=== PATIENT | female | born 1940 | race Caucasian/White ===

== ENCOUNTER 2019-08-23 10:28 | Observation (INO) | payer MEDICARE ==
[2019-08-23] MEDS ORDERED: NS 0.9% 1000 ML** 1,000 ML IV ONE ×2 (10:47→11:28)
--- NOTE | 2019-08-23 10:58 | ED ---
Influenza-Like Illness - HPI Summary HPI Summary: 78 year old F presenting to [facility] accompanied by EMS complains of flu-like symptoms since 4 days ago. Patient reports weakness, cough, nausea, and fatigue per EMS. Pt denies hematuria and dysuria. Pt is not on O2 at home and lives. SocHx of smoking. The patient rates the pain 3/10 in severity. Symptoms aggravated by nothing. Symptoms alleviated by nothing. - History of Current Complaint Chief Complaint: EDFluSymptoms Time Seen by Provider: 08/23/19 10:34 Hx Obtained From: Patient, EMS Onset/Duration: Lasting Days, Still Present Severity: Mild Associated Signs & Symptoms: Cough - Allergy/Home Medications Allergies/Adverse Reactions: Allergies Allergy/AdvReac Type Severity Reaction Status Date / Time MS Loratadine [From Claritin] Allergy Severe See Comment Verified 08/23/19 10:43 MS Atenolol [From Tenormin] Allergy Intermediate Hives Verified 08/23/19 10:43 MS Captopril [From Capoten] Allergy Intermediate Hives Verified 08/23/19 10:43 MS Codeine [Codeine] Allergy Intermediate Hives Verified 02/18/17 09:23 PMH/Surg Hx/FS Hx/Imm Hx Cardiovascular History: Reports: Hx Angina, Hx Hypertension, Other Cardiovascular Problems/Disorders - DOUBLE BYPASS Respiratory History: Reports: Hx Asthma - Cancer History Cancer Type, Location and Year: RENAL CA - Surgical History Surgery Procedure, Year, and Place: HYSTERECTOMY 1969; BYPASS 2004; LEFT NEPHRECTOMY Infectious Disease History: No Infectious Disease History: Denies: Traveled Outside the [place] in Last 30 Days - Family History Known Family History: Positive: Other - Brother has carcinoma - Social History Alcohol Use: None Substance Use Type: Reports: None Hx Tobacco Use: Yes Smoking Status (MU): Former Smoker - quit last week Review of Systems Positive: Fatigue Positive: Cough Positive: Nausea Negative: dysuria, hematuria Positive: Weakness All Other Systems Reviewed And Are Negative: Yes Physical Exam - Summary Physical Exam Summary: Constitutional: appears fatigued Skin: Warm, Dry HENT: Dry mucous membranes Eyes: Conjunctiva normal Neck: Musculoskeletal ROM normal neck. (-) JVD, (-) Stridor, (-) Tracheal deviation Cardio: Rhythm regular, rate normal, Heart sounds normal; Intact distal pulses; The pedal pulses are 2+ and symmetric. Radial pulses are 2+ and symmetric. (-) Murmur Pulmonary/Chest wall: Effort normal. (-) Respiratory distress, (-) Wheezes, (-) Rales Abd: Soft, (-) tenderness, (-) Distension, (-) Guarding, (-) Rebound Musculoskeletal: (-) Edema Lymph: (-) Cervical adenopathy Neuro: Alert, Oriented x3 Psych: Mood and affect Normal Lungs: faint wheezing/crackles Triage Information Reviewed: Yes Vital Signs On Initial Exam: Initial Vitals Temp Pulse Resp BP Pulse Ox 97.2 F 110 16 67/52 93 08/23/19 10:40 08/23/19 10:40 08/23/19 10:40 08/23/19 10:40 08/23/19 10:40 Vital Signs Reviewed: Yes Procedures - Sedation Patient Received Moderate/Deep Sedation with Procedure: No Diagnostics - Vital Signs Vital Signs Temp Pulse Resp BP Pulse Ox 08/23/19 10:40 97.2 F 110 16 67/52 93 - Laboratory Result Diagrams: 08/23/19 10:56 08/23/19 10:56 Lab Statement: Any lab studies that have been ordered have been reviewed, and results considered in the medical decision making process. - Radiology CXR Radiology Interpretation Completed By: Radiologist Summary of Radiographic Findings: IMPRESSION: 1. RIGHT GREATER THAN LEFT BIBASILAR AIRSPACE OPACIFICATION (ATELECTASIS VERSUS. INFILTRATE. 2. KNOWN PULMONARY NODULES BETTER CHARACTERIZED BY COMPARISON CT IMAGING. 3. POSTOPERATIVE CHANGES. has reviewed this report. - EKG 1051 Cardiac Rate: Tachycardia EKG Rhythm: Sinus Tachycardia Summary of EKG Findings: EKG at 1051 reveals sinus tachycardia with a rate of [address] depression. Lateral leads. has reviewed and interpreted this report. Flu Symptom Course/Dx - Course Course Of Treatment: 78 year old F presenting to [facility] accompanied by EMS complains of flu-like symptoms since 4 days ago. Patient reports weakness, cough , nausea, and fatigue per EMS. Physical exam findings: Gen: appears fatigued. HENT: dry mucous membranes. Lungs: faint wheezing/crackles. Bloodwork results with no significant abnormalities except for H WBC, H RDW, H Plt Count, H Absolute Neuts, L Absolute Lymphs, L Carbon Dioxide, H Anion Gap, H BUN, H Creatinine, H BUN/Creatinine Ratio, H Troponin I (0.05), L Albumin, L Albumin/ [place] Ratio. Urinalysis results with no significant abnormalities except for Trace A Urine Ketones. An EKG shows EKG at 1051 reveals sinus tachycardia with a rate of [address] depression. Lateral leads. CXR shows 1. RIGHT GREATER THAN LEFT BIBASILAR AIRSPACE OPACIFICATION (ATELECTASIS VERSUS INFILTRATE. 2. KNOWN PULMONARY NODULES BETTER CHARACTERIZED BY COMPARISON CT IMAGING. 3. POSTOPERATIVE CHANGES, per radiologist. In the ED course, the patient was given Ns, Ceftriaxone 1 gm Ns 0.9% 50 ml, Azithromycin 500 mg/250 ml NS. We discussed patient care with at 1125 who recommended admission. The patient will be admitted to the hospitalist. The patient is agreeable with this plan. - Diagnoses Provider Diagnoses: Dehydration, COPD (chronic obstructive pulmonary disease), Renal insufficiency , Elevated troponin - Physician Notifications Discussed Care Of Patient With: Jarrod Daniels Time Discussed With Above Provider: 11:25 Instructed by Provider To: Admit As Inpatient Discharge ED - Sign-Out/Discharge Documenting (check all that apply): Patient Departure - admit - Discharge Plan Condition: Stable Disposition: ADMITTED TO [facility] Referrals: Hammad Robertson DO [Primary Care Provider] - - Attestation Statements Document Initiated by Scribe: Yes Documenting Scribe: Ankur Barber Provider For Whom Rochelle is Documenting (Include Credential): Vik Moore DO Scribe Attestation: Ankur Baxter scribed for Vik Moore DO on 08/23/19 at 1150. Status of Scribe Document: Ready
[2019-08-23 11:09] LABS: ABS Eosinophils 0.1 10^3/ul (0-0.6); ABS Lymphocytes 0.7 10^3/ul (1.0-4.8); ABS Monocytes 0.6 10^3/ul (0-0.8); ABS Neutrophils 11.8 10^3/ul (1.5-7.7); Eosinophil % 0.9 %; Hematocrit 39 % (35-47); Hemoglobin 13.1 g/dL (12.0-16.0); Lymphocyte % 5.3 %; Mean Corpuscular HGB Conc 34 g/dL (31-36); Mean Corpuscular Hemoglobin 30 pg (27-31); Mean Corpuscular Volume 90 fL (80-97); Mean Platelet Volume 8.1 fL (7.4-10.4); Nucleated Red Blood Cells % 0.1; Platelet Count 508 10^3/uL (150-450); Red Blood Count 4.33 10^6 /uL (3.70-4.87); Red Cell Distribution Width 16 % (10-15); White Blood Count 13.3 10^3/uL (3.5-10.8)
[2019-08-23 11:12] LABS: Influenza A Molecular Negative (Negative); Influenza B Molecular Negative (Negative)
[2019-08-23 11:23] LABS: Urine Appearance Cloudy; Urine Bilirubin Negative (Negative); Urine Blood Negative (Negative); Urine Color Amber; Urine Glucose Negative (Negative); Urine Ketones Trace (Negative); Urine Nitrite Negative (Negative); Urine Protein Negative (Negative); Urine Specific Gravity 1.016 (1.010-1.030); Urine Urobilinogen Negative (Negative)
[2019-08-23 11:26] LABS: ALT 11 U/L (7-52); AST 17 U/L (13-39); Albumin 3.1 g/dL (3.2-5.2); Albumin/Globulin Ratio 0.8 (1-3); Alkaline Phosphatase 90 U/L (34-104); Anion Gap 18 mmol/L (2-11); BUN/Creatinine Ratio 22.2 (8-20); Blood Urea Nitrogen 57 mg/dL (6-24); CO2 Carbon Dioxide 18 mmol/L (22-32); Calcium 9.3 mg/dL (8.6-10.3); Chloride 101 mmol/L (101-111); EGFR African American 21.8 (>60); Glucose 78 mg/dL (70-100); Potassium 4.3 mmol/L (3.5-5.0); Sodium 137 mmol/L (135-145); Total Protein 7.1 g/dL (6.4-8.9)
[2019-08-23] MEDS ORDERED: cefTRIAXone(*) 1 GM in NS 0.9% 50 ML* 50 ML IVPB ONE (11:28)
[2019-08-23 11:29] LABS: Troponin I 0.05 ng/mL (<0.03)
[2019-08-23] MEDS ORDERED: Azithromycin 500 mg/250 ml NS 500 MG/250 ML BAG IVPB ONE (11:43)
[2019-08-23] MEDS ORDERED: Ondansetron INJ* 2 MG/ML VIAL IV PRN (12:50)
[2019-08-23] MEDS ORDERED: Albuterol/Ipratropium NEB.SOL* Albuterol 2.5 MG/Ipratropium 0.5 MG 3 ML INH PRN (12:50)
[2019-08-23] MEDS ORDERED: Acetaminophen TAB* 325 MG PO PRN (12:50)
[2019-08-23] MEDS ORDERED: Albuterol HFA INHALER* 8 gm MDI INH PRN (13:57)
[2019-08-23 15:05] LABS: Troponin I 0.03 ng/mL (<0.03)
--- NOTE | 2019-08-23 16:06 | HP ---
CC: Dr. Robertson * HISTORY AND PHYSICAL: DATE OF ADMISSION: 08/23/19 PRIMARY CARE PROVIDER: Dr. Robertson. ATTENDING PHYSICIAN: Dr. Daniels * (dictated by Radha Gary NP) CHIEF COMPLAINT: 1. Weakness. 2. Cough. 3. Fatigue. HISTORY OF PRESENT ILLNESS: Ms. Greer is an 78-year-old female with a past medical history significant for hypertension, double bypass, renal CA, who presents to the emergency department today with flu-like symptoms x4 days. The patient is complaining of weakness, cough, nausea, fatigue. The patient reports symptoms started about 4 days ago and she "felt lousy." She tells us right now she has been experiencing dry mouth, cough with sputum, chest pain with cough, nausea, fatigue, weakness. She denies fevers, edema, hemoptysis, vomiting, diarrhea, abdominal pain. She does report occasional shortness of breath. While in the emergency room the patient had labs, which revealed elevated WBC of 13.3, elevated creatinine at 2.57, elevated lactic at 2.4; given these finding in addition to a chest x-ray that revealed right greater than left bibasilar airspace opacification atelectasis versus infiltrate. Hospitalists were asked to evaluated for admission. PAST MEDICAL HISTORY: 1. Hypertension. 2. Double bypass/CAD. 3. Renal CA. PAST SURGICAL HISTORY: 1. Hysterectomy. 2. Bypass 2004. 3. Left nephrectomy 2013. ALLERGIES: LORATADINE, ATENOLOL, CIPRO, CODEINE. FAMILY HISTORY: She reports her daughters both have diabetes. She denies history of CAD or cancer. SOCIAL HISTORY: The patient quit smoking 1 week ago. The patient had 65 year a pack per day smoking history. The patient does not drink. The patient does not do drugs. The patient is retired. The patient lives with her son. The patient is independent in her ADLs. The patient declines to list someone as a healthcare proxy in the event that she is unable to make decisions for herself. REVIEW OF SYSTEMS: A 14 point review of systems was performed and all pertinent positive and negative findings are in the HPI. All others are negative. PHYSICAL EXAMINATION GENERAL: Ms. Greer is a underweight elderly woman, who is lying in bed. Appears to be in no acute distress. Appears stated age. VITAL SIGNS: Temp 97.2, HR 109, RR 26, O2 saturation 96% on room air, BP 108/ 56. HEENT: PERRLA. EOMs intact. Sclerae are without icterus. Oral mucosa is moist without lesion. Posterior pharynx is clear. NECK: No lymphadenopathy. No pain to palpation. RESPIRATORY: Symmetrical chest expansion. No accessory muscle use. Rhonchi heard upper anteriorly and sporadically throughout posteriorly. No wheezes or rubs. CV: Regular rate and rhythm. S1, S2 present. No murmurs, rubs or gallops. ABDOMEN: Soft, nontender. Bowel sounds normoactive. EXTREMITIES: Skin is warm and smooth bilaterally. No edema. No clubbing, cyanosis. Pedal pulses 2+ bilaterally. MUSCULOSKELETAL: No pain or deformities. NEURO: Awake, alert and oriented x4. Motor strength is 5/5 in the upper and lower extremities. SKIN: Grossly intact without lesion. DIAGNOSTIC STUDIES/LAB DATA: WBC 13.3, hemoglobin 13.1, hematocrit 39, platelets 508. Sodium 137, potassium 4.3, chloride 101, carbon dioxide 18, BUN 57, creatinine 2.57, lactic 2.4. Troponin 0.05. Urine positive for trace ketones otherwise unremarkable. Flu A and B negative. Chest x-ray: Right greater than left bibasilar airspace opacification ( atelectasis versus infiltrate) known pulmonary nodules that are characterized by comparison CT imaging. Postoperative changes. EKG: Sinus tachycardia, ASSESSMENT AND PLAN: Ms. Greer is a 78-year-old female with past medical history significant for hypertension, coronary artery disease, renal cancer; who presented to the emergency department today with flu-like symptoms. The patient will be admitted to OBV: 1. Weakness/fatigue: The patient has been experiencing flu-like symptoms including weakness fatigue x4 days. The patient has a slightly elevated white count. The patient has slightly elevated lactic. She is flu negative. Chest x -ray suspicious for infiltrate. We will continue antibiotics as started in the emergency room. We will repeat labs. We will monitor vital signs. 2. Cough/shortness of breath: The patient has occasional productive cough and also complaining of occasional shortness of breath. Given the chest x-ray we will continue antibiotics as mentioned above. We will order DuoNeb as needed. 3. Systemic inflammatory response syndrome. The patient meets Systemic inflammatory response syndrome criteria with tachycardia, tachypnea, and elevated white count. She received fluid bolus in the emergency department. I will hold on any additional fluids at this time as we do not know the patient's ejection fraction. We will continue antibiotics. The patient was pancultured. Lactic acid will be repeated in 3 hours. 4. Lactic acidosis: The patient's lactic is 2.4. We will repeat in 3 hours. I suspect this is secondary to her illness. 5. Leukocytosis: We will continue antibiotics. Repeat labs in the morning. 6. Acute on chronic kidney disease: As mentioned above the patient's creatinine was elevated on admission at 2.57. This is above her baseline of 1.77 on November 2018. I suspect this is secondary to her illness process and also possibly dehydration. She reports she has been unable to drink much or eat much given her weakness. We will repeat her creatinine in the morning. We will refrain from any nephrotoxic medication. 7. Elevated troponin: Troponin was drawn in the ED and was found to be 0.05. The patient is not complaining of any acute coronary syndrome symptoms. The patient does report some chest pain with cough but only with cough. The patient 's EKG was unremarkable. Given that it is mildly elevated at 0.05, we will repeat this. We suspect that it is demand ischemia given the patient's respiratory illness. 8. Hypertension: The patient carries a history of hypertension, although she was noted to be hypotensive in the emergency department. Given her meeting systemic inflammatory response syndrome criteria, I will hold her blood pressure medications at this time and we will hold her lisinopril at this time. I will continue her metoprolol to avoid rebound tachycardia. 9. Double bypass/coronary artery disease: I will continue the patient's aspirin and statin. 10. Renal cancer: The patient had nephrectomy in 2013. Once again her creatinine is mildly elevated we will monitor this. We will also provide with hydration. We will avoid nephrotoxic medications. 11. FEN: The patient will be placed on a regular diet. 12. Code status: The patient is a full code. 13. DVT prophylaxis: Based on DVT Risk Assessment, the patient is high risk. I will order heparin. TIME SPENT: Approximately 65 minutes was spent on this admission, greater than half the time was spent with the patient obtaining my history, performing physical exam and reviewing my plan of care. The case has been reviewed with my attending Dr. Daniels, who is in agreement with my plan of care. RADHA GARY, ASSOCIATE CREATIVE DIRECTOR [id number]/[facility] [place] #: [id number] E.J. NOBLE HOSPITALVarinder
[2019-08-23] MEDS: Heparin VIAL(*) 5000 UNITS/ML VIAL (FIVE THOUSAND) SUBCUT SCH ×2 (16:07→21:10)
[2019-08-23] MEDS: Mometasone/Formoter 200/5 MDI INH SCH (20:25)
[2019-08-23] MEDS: Metoprolol Tartrate TAB* 100 MG TAB PO SCH (21:09)
[2019-08-24] MEDS: Heparin VIAL(*) 5000 UNITS/ML VIAL (FIVE THOUSAND) SUBCUT SCH ×2 (06:03→13:22)
[2019-08-24 07:10] LABS: ABS Eosinophils 0.4 10^3/ul (0-0.6); ABS Lymphocytes 0.9 10^3/ul (1.0-4.8); ABS Monocytes 0.5 10^3/ul (0-0.8); ABS Neutrophils 7.6 10^3/ul (1.5-7.7); Eosinophil % 4.2 %; Hematocrit 34 % (35-47); Hemoglobin 11.4 g/dL (12.0-16.0); Lymphocyte % 9.9 %; Mean Corpuscular HGB Conc 34 g/dL (31-36); Mean Corpuscular Hemoglobin 30 pg (27-31); Mean Corpuscular Volume 90 fL (80-97); Mean Platelet Volume 8.3 fL (7.4-10.4); Nucleated Red Blood Cells % 0.1; Platelet Count 361 10^3/uL (150-450); Red Blood Count 3.78 10^6 /uL (3.70-4.87); Red Cell Distribution Width 15 % (10-15); White Blood Count 9.4 10^3/uL (3.5-10.8)
[2019-08-24 07:28] LABS: Albumin 2.6 g/dL (3.2-5.2); Albumin/Globulin Ratio 0.8 (1-3); BUN/Creatinine Ratio 25.8 (8-20); EGFR African American 27.1 (>60); EGFR Non-African American 22.4 (>60); Globulin 3.1 g/dL (2-4); Potassium 3.7 mmol/L (3.5-5.0); Total Bilirubin 0.5 mg/dL (0.2-1.0); Total Protein 5.7 g/dL (6.4-8.9)
[2019-08-24] MEDS: Mometasone/Formoter 200/5 MDI INH SCH (07:37)
[2019-08-24] MEDS: Metoprolol Tartrate TAB* 100 MG TAB PO SCH (08:18)
[2019-08-24] MEDS ORDERED: Atorvastatin* 20 MG TAB PO SCH (09:00)
[2019-08-24] MEDS ORDERED: SPIRIVA Respimat* (tiotropium) 2.5 mcg/inh Inhaler INH SCH (09:00)
[2019-08-24] MEDS ORDERED: Aspirin EC TAB* 81 MG TAB.EC PO SCH (09:00)
[2019-08-24] MEDS ORDERED: cefTRIAXone(*) 1 GM in NS 0.9% 50 ML* 50 ML IVPB SCH (12:00)
[2019-08-24 12:27] VITALS: BP 119/38
[2019-08-24] MEDS ORDERED: Azithromycin IV(*) 250 MG in NS 0.9% 250 ML* 250 ML IVPB SCH (13:00)
--- NOTE | 2019-08-25 00:27 | DS ---
CC: Dr. Hammad Robertson * DISCHARGE SUMMARY: DATE OF ADMISSION: 08/23/19 DATE OF DISCHARGE: 08/24/19 PRIMARY CARE PROVIDER: Dr. Hammad Robertson. MY ATTENDING WHILE IN THE HOSPITAL: Dr. Ciarra Childers.* (DICTATED BY KHOA IRIZARRY) PRIMARY DISCHARGE DIAGNOSES: 1. Community-acquired pneumonia. 2. Acute kidney injury. 3. Sepsis. SECONDARY DISCHARGE DIAGNOSES: 1. Hypertension. 2. Coronary artery disease, status post double bypass. 3. Renal cancer, status post nephrectomy. STUDIES DONE WHILE IN THE HOSPITAL: Chest x-ray from 08/23/19 read as right greater than left bibasilar airspace opacification, atelectasis versus infiltrate. No pulmonary nodules that are characterized by comparison CT imaging , postoperative changes. MEDICATIONS AT DISCHARGE: 1. Advair Diskus 500/50 one puff inhalation b.i.d. 2. Albuterol inhaler 2 puffs inhalation q.4 hours as needed. 3. Pravastatin 80 mg p.o. daily. 4. Metoprolol tartrate 100 mg p.o. b.i.d. 5. Incruse Ellipta 62.5 mcg inhalation daily. 6. Vitamin D 400 mg p.o. b.i.d. 7. Calcium carbonate 500 mg p.o. b.i.d. 8. Aspirin 81 mg p.o. daily. 9. [place]-3 fatty acids 1 cap p.o. b.i.d. 10. Tylenol 650 mg p.o. q.4 hours as needed. 11. Azithromycin 250 mg p.o. daily x3. 12. Cefuroxime 500 mg p.o. b.i.d. x11 doses, started in the evening of . New medications at discharge: 1. Tylenol. 2. Azithromycin. 3. Cefuroxime. Medications discontinued at discharge: 1. Lisinopril 40 mg p.o. daily. HOSPITAL COURSE: This is a brief summary of the patient's presentation. For more details, please see the history and physical from Radha Montero NP, on 08/23/19. In brief, the patient is a 78-year-old female with a past medical history significant for the above, who presented to the emergency department with weakness and flu-like symptoms x4 days including dry mouth, cough, weakness , and shortness of breath. In the emergency department, the patient was found to have acute kidney injury, elevated lactic acid, and slightly elevated troponin. The patient was given fluids and antibiotics and her subjective symptoms improved. She felt back to her baseline. Her creatinine declined from 2.57 and 2.13, her most recent baseline was 1.77. The patient was able to ambulate 100 feet with being slightly unsteady on her feet, though she states it is not abnormal for her. The patient's breathing felt back to normal. The patient had no further subjective symptoms. The patient was not hypoxic, did not have low blood pressure. The patient has had no elevated temperature. The patient's tachycardia resolved. The patient was stable and amenable for discharge to home on 08/24/19. PHYSICAL EXAMINATION ON THE DAY OF DISCHARGE: General: The patient is a 78- year- old female, who appears stated age and sitting comfortably in the bed, in no acute distress. Vital Signs: Temperature 98.0, pulse rate 64, respiratory rate 18, oxygen saturation 95% on room air, blood pressure 119/58. HEENT: Head : Normocephalic, atraumatic. Sclerae anicteric. No conjunctival injection. Nasal mucosa moist. Oral mucosa moist. No pharyngeal erythema, discharge, or exudate. Neck: Supple, nontender. No lymphadenopathy. No carotid bruit auscultated. No JVD. Cardiac: Regular rate and rhythm. No clicks, murmurs, gallops, or rubs. Pulses 2+ in bilateral dorsalis pedis, posterior tibialis, and radial areas. Respiratory: Clear to auscultation bilaterally. No wheezes, rales, or rhonchi. Good air exchange bilaterally. Abdomen: Soft, nontender, nondistended. Bowel sounds present and normoactive in all 4 quadrants. No hepatosplenomegaly. No abdominal bruits auscultated. No hepatojugular reflux. Genitourinary: No suprapubic or CVA tenderness. Skin: Clean, dry, and intact. No rash. Neuro: Cranial nerves II through XII intact. No focal deficits. Alert and oriented x3. Psychiatric: Pleasant and cooperative. DISCHARGE PLAN BY PROBLEMS: 1. Community-acquired pneumonia. The patient has imaging findings and symptoms consistent with community-acquired pneumonia and is improving on antibiotics, this is likely because of the patient's acute kidney injury and weakness. The patient has been instructed to decrease her activity level for several days. Continue to work with physical therapy as tolerated and drink lots of fluids. The patient will be continued on for total of 7 days of cephalosporin therapy and 5 days of azithromycin. The patient's blood pressure initially low while in the hospital and is not normal on the patient's metoprolol, however, the patient's lisinopril has been held. The patient will have repeat blood pressure check with her primary care provider within 1 week and lisinopril should be resumed if indicated. 2. Hypertension. Management as above. 3. Chronic obstructive pulmonary disease. Continue the patient's chronic inhalers. The patient is not in any exacerbation at this time. 4. History of coronary artery disease. Continue the patient's Lipitor and aspirin. The patient has an elevated troponin likely from demand ischemia. 5. Acute kidney injury. It is likely related to sepsis and dehydration. The patient has been rehydrated and is on an appropriate antibiotic therapy. The patient will have repeat BMP within 1 week through her primary care provider to ensure resolution. TIME SPENT: Approximately 60 minutes was spent on this discharge of this patient, 30 of which was spent [id number] with the patient obtaining history and physical and discussing the treatment plan. KHOA IRIZARRY [id number]/[facility] #: [id number] MTDD
== END 2019-08-24 15:55 | disposition home or self-care (01) ==
LOC: ED 10:28 → MED 12:50
PROVIDERS: ADMIT Internal Medicine; ATTEND Internal Medicine
DX: A41.9 Sepsis, unspecified organism (principal); J18.9 Pneumonia, unspecified organism; I12.9 Hypertensive chronic kidney disease with stage 1 through stage 4 chronic kidney disease, or unspecified chronic kidney disease; N18.9 Chronic kidney disease, unspecified; I25.10 Atherosclerotic heart disease of native coronary artery without angina pectoris; N17.9 Acute kidney failure, unspecified; R53.83 Other fatigue; Z95.1 Presence of aortocoronary bypass graft; Z85.53 Personal history of malignant neoplasm of renal pelvis; Z90.5 Acquired absence of kidney; Z79.82 Long term (current) use of aspirin; Z79.899 Other long term (current) drug therapy; Z87.891 Personal history of nicotine dependence; Z88.5 Allergy status to narcotic agent; Z88.8 Allergy status to other drugs, medicaments and biological substances
CPT/HCPCS: 36415; 71045; 80053; 81003; 83605; 84484; 85025; 87040; 93005; 94640; 96365; 96366; 96367; 96372; 96375; 99285; A9270-GY; G0378; J0456; J0696; J1644; J3535

== ENCOUNTER 2023-02-03 16:08 | Inpatient (IN) ==
[2023-02-03 16:41] LABS: ABS Eosinophils 0.2 10^3/uL (0.0-0.5); ABS Lymphocytes 0.8 10^3/uL (1.0-4.8); ABS Monocytes 0.8 10^3/uL (0.0-0.9); ABS Neutrophils 5.2 10^3/uL (1.5-7.6); ABS Nucleated RBC 0.01 10^3/ul; Eosinophil % 3.4 %; Hematocrit 34.4 % (35-45); Hemoglobin 11.4 g/dL (11.5-14.3); Lymphocyte % 10.8 %; Mean Corpuscular Hemoglobin 28.6 pg (27-33); Mean Corpuscular Hgb Conc 33.2 g/dL (31-36); Mean Platelet Volume 7.5 fL (7.5-11.2); Nucleated Red Blood Cells % 0.1 /100 WBC (0.0-0.4); Platelet Count 301 10^3/uL (150-450); Red Cell Distribution Width 15.6 % (12-17)
[2023-02-03 17:05] LABS: Albumin 3.8 g/dL (3.2-5.2); Albumin/Globulin Ratio 1.5 (1-3); Calcium 8.2 mg/dL (8.6-10.3); Creatinine, Serum 1.49 mg/dL (0.51-0.95); Globulin 2.6 g/dL (2-4); Total Bilirubin 0.8 mg/dL (0.2-1.0); Total Protein 6.4 g/dL (6.4-8.9); eGFR CKD-EPI 34.9 (>60)
[2023-02-03 17:13] LABS: Potassium 2.1 mmol/L (3.5-5.0)
[2023-02-03] MEDS ORDERED: Potassium Chlor 20 meq TAB.ER PO ONE ×3 (17:38→18:28)
[2023-02-03] MEDS: KCL 10 MEQ/50 ML IVPREMIX 10 MEQ/50 ML BAG IV SCH ×2 (17:54→19:48)
[2023-02-03 18:17] LABS: Magnesium 1.7 mg/dL (1.9-2.7)
[2023-02-03] MEDS ORDERED: Magnesium Sulfate 2 gm BAG 2 GM/50 ML BAG IVPB ONE (18:28)
[2023-02-03] MEDS ORDERED: Albuterol HFA INHALER 8 gm MDI INH PRN (21:59)
[2023-02-03] MEDS: Enoxaparin 30 MG/0.3 ML SYR SUBCUT SCH (22:49)
[2023-02-04 00:50] LABS: Calcium 7.8 mg/dL (8.6-10.3); Creatinine, Serum 1.43 mg/dL (0.51-0.95); Magnesium 2.4 mg/dL (1.9-2.7); eGFR CKD-EPI 36.6 (>60)
[2023-02-04 01:00] LABS: Potassium 2.2 mmol/L (3.5-5.0)
[2023-02-04] MEDS ORDERED: Calcium Carb (TUMS) 500 mg CHEW TAB PO ONE (01:01)
[2023-02-04] MEDS ORDERED: Potassium Chlor 20 meq TAB.ER PO ONE ×4 (01:09→09:13)
[2023-02-04] MEDS: Mometasone/Formoter 200/5 MDI INH SCH ×3 (01:27→19:39)
[2023-02-04] MEDS: CMCS: Ipratropium HFA INHALER(NF) INH SCH ×5 (01:27→19:39)
[2023-02-04] MEDS: KCL 20 MEQ/100 ML IVPREMIX 20 MEQ/100 ML BAG IV SCH ×5 (01:33→23:26)
[2023-02-04] MEDS ORDERED: KCL 20 MEQ/100 ML IVPREMIX 20 MEQ/100 ML BAG IV SCH (04:00)
[2023-02-04 05:03] LABS: Calcium 8.1 mg/dL (8.6-10.3); Creatinine, Serum 1.43 mg/dL (0.51-0.95); Magnesium 2.4 mg/dL (1.9-2.7); Potassium 2.8 mmol/L (3.5-5.0); eGFR CKD-EPI 36.6 (>60)
[2023-02-04] MEDS ORDERED: Succinylcholine 200 mg VIAL 20 mg/ml 10 ml VIAL (200 mg) ONE (13:41)
[2023-02-04 13:55] LABS: Venous Bicarbonate HCO3 23.7 mmol/L (24-28)
[2023-02-04] MEDS ORDERED: Propofol 10 mg/ml 100 ML BTL 0 MG/0 ML BTL ONE (14:02)
[2023-02-04] MEDS ORDERED: Propofol 10 mg/ml 100 ML BTL 1,000 MG/100 ML BTL ONE (14:04)
[2023-02-04 14:05] LABS: INR 1.13 (0.88-1.18)
[2023-02-04 14:07] LABS: ABS Basophils 0.1 10^3/uL (0.0-0.1); ABS Eosinophils 0.8 10^3/uL (0.0-0.5); ABS Lymphocytes 2.4 10^3/uL (1.0-4.8); ABS Monocytes 1.1 10^3/uL (0.0-0.9); ABS Neutrophils 9.3 10^3/uL (1.5-7.6); ABS Nucleated RBC 0.01 10^3/ul; Eosinophil % 5.6 %; Hemoglobin 12.3 g/dL (11.5-14.3); Lymphocyte % 17.7 %; Mean Corpuscular Hemoglobin 28.2 pg (27-33); Mean Corpuscular Hgb Conc 31.6 g/dL (31-36); Mean Corpuscular Volume 89.3 fL (80-97); Mean Platelet Volume 8.2 fL (7.5-11.2); Nucleated Red Blood Cells % 0.1 /100 WBC (0.0-0.4); Platelet Count 491 10^3/uL (150-450); Red Blood Count 4.37 10^6/uL (3.63-4.92); Red Cell Distribution Width 15.8 % (12-17); White Blood Count 13.6 10^3/uL (3.8-11.8)
[2023-02-04 14:08] LABS: Albumin 3.6 g/dL (3.2-5.2); Albumin/Globulin Ratio 1.3 (1-3); Calcium 8.3 mg/dL (8.6-10.3); Creatinine, Serum 1.35 mg/dL (0.51-0.95); Globulin 2.8 g/dL (2-4); Magnesium 2.4 mg/dL (1.9-2.7); Potassium 4.2 mmol/L (3.5-5.0); Total Bilirubin 0.5 mg/dL (0.2-1.0); Total Protein 6.4 g/dL (6.4-8.9); eGFR CKD-EPI 39.2 (>60)
[2023-02-04] MEDS: Propofol 10 mg/ml 100 ML BTL 1,000 MG/100 ML BTL IV SCH (14:10)
[2023-02-04] MEDS ORDERED: fentaNYL 100 mcg/2 ml 50 MCG/ML VIAL ONE ×2 (14:18→15:47)
[2023-02-04] MEDS ORDERED: NORMOSOL-R pH 7.4 1000 mL BAG 1,000 ML IV SCH (14:30)
[2023-02-04] MEDS ORDERED: Norepinephrine 16MCG/ML BAGD5W 4,000 MCG/250 ML BAG IV ONE (14:32)
[2023-02-04] MEDS ORDERED: Propofol 10 MG/ML 20 ML BTL IV PUSH ONE (14:53)
[2023-02-04] MEDS ORDERED: fentaNYL 100 mcg/2 ml 50 MCG/ML VIAL IV SLOW PU ONE ×2 (15:10→16:01)
[2023-02-04] MEDS ORDERED: fentaNYL INFUSION 50 mcg/mL VL 2,500 MCG/50 ML VIAL IV SCH (15:25)
[2023-02-04 15:30] LABS: Resp Rate 16
[2023-02-04 15:33] LABS: PCO2 Arterial 68 mmHg (35-45); PO2 Arterial 165 mmHg (80-100)
[2023-02-04] MEDS: cefTRIAXone 1 gm/50 mL D5W 1 GM/50 ML BAG IV SCH (17:00)
[2023-02-04] MEDS: Azithromycin 500 mg/250 ml NS 500 MG/250 ML BAG IVPB SCH (17:03)
[2023-02-04 17:20] LABS: Urine Appearance Turbid; Urine Bilirubin Negative (Negative); Urine Blood 1+ (Negative); Urine Color Yellow; Urine Glucose Negative (Negative); Urine Ketones Negative (Negative); Urine Nitrite Negative (Negative); Urine Protein 2+(100 mg/dL) (Negative); Urine Specific Gravity 1.014 (1.002-1.030); Urine Urobilinogen Negative (Negative)
[2023-02-04] MEDS: Aspirin EC 81 mg TAB.EC (enteric coated) PO SCH (17:25)
[2023-02-04 17:39] LABS: Urine Bacteria 3+ (Absent); Urine Red Blood Cell 3+(>10/hpf) (Absent); Urine White Blood Cell 3+(>20/hpf) (Absent)
[2023-02-04] MEDS ORDERED: Norepinephrine 16MCG/ML BAGD5W 4,000 MCG/250 ML BAG IV SCH (18:00)
[2023-02-04] MEDS: Pantoprazole VIAL 40 MG VIAL IV SCH (18:32)
[2023-02-04] MEDS: Chlorhexidine MOUTHWASH 0.12% 15 ML UDC TOPICAL SCH ×2 (18:32→20:55)
[2023-02-04] MEDS: Enoxaparin 30 MG/0.3 ML SYR SUBCUT SCH (20:55)
[2023-02-04 21:23] LABS: Calcium 8.1 mg/dL (8.6-10.3); Creatinine, Serum 1.37 mg/dL (0.51-0.95); Potassium 3.6 mmol/L (3.5-5.0); eGFR CKD-EPI 38.6 (>60)
[2023-02-05] MEDS: KCL 20 MEQ/100 ML IVPREMIX 20 MEQ/100 ML BAG IV SCH ×4 (01:44→10:43)
[2023-02-05] MEDS: Propofol 10 mg/ml 100 ML BTL 1,000 MG/100 ML BTL IV SCH ×2 (01:45→14:10)
[2023-02-05] MEDS: Chlorhexidine MOUTHWASH 0.12% 15 ML UDC TOPICAL SCH ×6 (02:04→21:13)
[2023-02-05 04:19] LABS: ABS Basophils 0.1 10^3/uL (0.0-0.1); ABS Eosinophils 0.3 10^3/uL (0.0-0.5); ABS Lymphocytes 1.2 10^3/uL (1.0-4.8); ABS Monocytes 1.1 10^3/uL (0.0-0.9); ABS Nucleated RBC 0.01 10^3/ul; Eosinophil % 2.9 %; Hematocrit 31.6 % (35-45); Hemoglobin 10.4 g/dL (11.5-14.3); Lymphocyte % 10.1 %; Mean Corpuscular Hemoglobin 28.9 pg (27-33); Mean Corpuscular Volume 87.4 fL (80-97); Mean Platelet Volume 7.5 fL (7.5-11.2); Nucleated Red Blood Cells % 0.1 /100 WBC (0.0-0.4); Platelet Count 312 10^3/uL (150-450); Red Blood Count 3.62 10^6/uL (3.63-4.92); Red Cell Distribution Width 16.1 % (12-17); White Blood Count 11.7 10^3/uL (3.8-11.8)
[2023-02-05 04:34] LABS: Calcium 8.1 mg/dL (8.6-10.3); Creatinine, Serum 1.39 mg/dL (0.51-0.95); Potassium 3.6 mmol/L (3.5-5.0); eGFR CKD-EPI 37.9 (>60)
[2023-02-05] MEDS: Mometasone/Formoter 200/5 MDI INH SCH ×2 (08:15→18:55)
[2023-02-05] MEDS: CMCS: Ipratropium HFA INHALER(NF) INH SCH ×4 (08:15→18:55)
[2023-02-05] MEDS: Aspirin EC 81 mg TAB.EC (enteric coated) PO SCH (08:27)
[2023-02-05 09:33] LABS: Venous Bicarbonate HCO3 27.5 mmol/L (24-28)
[2023-02-05 16:38] LABS: Calcium 8.6 mg/dL (8.6-10.3); Creatinine, Serum 1.3 mg/dL (0.51-0.95); Phosphorus 2.5 mg/dL (2.5-5.0); Potassium 3.8 mmol/L (3.5-5.0); eGFR CKD-EPI 41.1 (>60)
[2023-02-05] MEDS: cefTRIAXone 1 gm/50 mL D5W 1 GM/50 ML BAG IV SCH (16:44)
[2023-02-05] MEDS: Azithromycin 500 mg/250 ml NS 500 MG/250 ML BAG IVPB SCH (17:17)
[2023-02-05] MEDS: Pantoprazole VIAL 40 MG VIAL IV SCH (17:17)
[2023-02-05] MEDS: Enoxaparin 30 MG/0.3 ML SYR SUBCUT SCH (21:13)
[2023-02-06] MEDS: Chlorhexidine MOUTHWASH 0.12% 15 ML UDC TOPICAL SCH ×6 (01:45→21:49)
[2023-02-06] MEDS: Propofol 10 mg/ml 100 ML BTL 1,000 MG/100 ML BTL IV SCH ×2 (02:00→15:56)
[2023-02-06 04:47] LABS: ABS Eosinophils 0.9 10^3/uL (0.0-0.5); ABS Monocytes 0.8 10^3/uL (0.0-0.9); ABS Neutrophils 5.2 10^3/uL (1.5-7.6); Eosinophil % 11.1 %; Hematocrit 29.3 % (35-45); Hemoglobin 9.8 g/dL (11.5-14.3); Lymphocyte % 13.1 %; Mean Corpuscular Hgb Conc 33.5 g/dL (31-36); Mean Corpuscular Volume 86.6 fL (80-97); Mean Platelet Volume 7.8 fL (7.5-11.2); Platelet Count 224 10^3/uL (150-450); Red Blood Count 3.39 10^6/uL (3.63-4.92); Red Cell Distribution Width 15.8 % (12-17)
[2023-02-06 05:05] LABS: Calcium 8.2 mg/dL (8.6-10.3); Creatinine, Serum 1.24 mg/dL (0.51-0.95); Magnesium 1.8 mg/dL (1.9-2.7); Phosphorus 2.8 mg/dL (2.5-5.0); Potassium 3.3 mmol/L (3.5-5.0); eGFR CKD-EPI 43.5 (>60)
[2023-02-06] MEDS ORDERED: Magnesium Sulfate 2 gm BAG 2 GM/50 ML BAG IVPB ONE (06:03)
[2023-02-06] MEDS ORDERED: Magnesium Sulfate IV 1GM/100ML 1 GM/100 ML BAG IV ONE (06:04)
[2023-02-06] MEDS: KCL 20 MEQ/100 ML IVPREMIX 20 MEQ/100 ML BAG IV SCH ×2 (06:19→08:03)
[2023-02-06] MEDS: CMCS: Ipratropium HFA INHALER(NF) INH SCH ×4 (06:38→22:06)
[2023-02-06] MEDS: Mometasone/Formoter 200/5 MDI INH SCH ×2 (06:39→22:06)
[2023-02-06] MEDS: Aspirin EC 81 mg TAB.EC (enteric coated) PO SCH (08:04)
[2023-02-06] MEDS: Dexmedetomidine 1,000 MCG in NS 0.9% 250 ml 240 ML IV SCH (15:40)
[2023-02-06] MEDS: cefTRIAXone 1 gm/50 mL D5W 1 GM/50 ML BAG IV SCH (17:52)
[2023-02-06] MEDS: Azithromycin 500 mg/250 ml NS 500 MG/250 ML BAG IVPB SCH (17:54)
[2023-02-06] MEDS: Pantoprazole VIAL 40 MG VIAL IV SCH (18:00)
[2023-02-06] MEDS: NS 0.9% 500 ml BAG 500 ML IV ONE (19:24)
[2023-02-06] MEDS: Enoxaparin 30 MG/0.3 ML SYR SUBCUT SCH (21:49)
[2023-02-06] MEDS ORDERED: Lactated Ringers 1000 ml BAG 1,000 ML IV ONE (22:45)
[2023-02-06] MEDS ORDERED: Lactated Ringers 1000 ml BAG 1,000 ML IV SCH (23:00)
[2023-02-07] MEDS: Chlorhexidine MOUTHWASH 0.12% 15 ML UDC TOPICAL SCH ×6 (00:06→20:37)
[2023-02-07 04:38] LABS: Calcium 7.6 mg/dL (8.6-10.3); Creatinine, Serum 1.02 mg/dL (0.51-0.95); Magnesium 1.8 mg/dL (1.9-2.7); Potassium 3.5 mmol/L (3.5-5.0); eGFR CKD-EPI 54.9 (>60)
[2023-02-07] MEDS: Propofol 10 mg/ml 100 ML BTL 1,000 MG/100 ML BTL IV SCH (05:01)
[2023-02-07] MEDS: Acetaminophen IV 1 GM/100ML 1,000 MG/100 ML BAG IV PRN ×2 (08:17→20:37)
[2023-02-07] MEDS ORDERED: NS 0.9% 500 ml BAG 500 ML IV ONE (08:45)
[2023-02-07] MEDS ORDERED: Potassium Chloride LIQUID 20 MEQ/15 ML LIQUID PO ONE (08:47)
[2023-02-07] MEDS ORDERED: Magnesium Sulfate 2 gm BAG 2 GM/50 ML BAG IVPB ONE (08:48)
[2023-02-07] MEDS: NS 0.9% 500 ml BAG 500 ML IV ONE (08:49)
[2023-02-07] MEDS: Aspirin EC 81 mg TAB.EC (enteric coated) PO SCH (09:17)
[2023-02-07] MEDS ORDERED: fentaNYL 100 mcg/2 ml 50 MCG/ML VIAL IV SLOW PU ONE ×2 (10:15→10:20)
[2023-02-07] MEDS: cefTRIAXone 1 gm/50 mL D5W 1 GM/50 ML BAG IV SCH (16:03)
[2023-02-07] MEDS: CMCS: Ipratropium HFA INHALER(NF) INH SCH ×3 (19:14→19:16)
[2023-02-07] MEDS: Mometasone/Formoter 200/5 MDI INH SCH (19:15)
[2023-02-07] MEDS: Enoxaparin 30 MG/0.3 ML SYR SUBCUT SCH (20:37)
[2023-02-07] MEDS: fentaNYL 100 mcg/2 ml 50 MCG/ML VIAL IV SLOW PU PRN (20:37)
[2023-02-07] MEDS: Dexmedetomidine 1,000 MCG in NS 0.9% 250 ml 240 ML IV SCH (20:42)
[2023-02-08] MEDS: Chlorhexidine MOUTHWASH 0.12% 15 ML UDC TOPICAL SCH ×7 (00:10→23:55)
[2023-02-08] MEDS: fentaNYL 100 mcg/2 ml 50 MCG/ML VIAL IV SLOW PU PRN ×6 (01:22→23:13)
[2023-02-08 04:20] LABS: ABS Eosinophils 0.6 10^3/uL (0.0-0.5); ABS Lymphocytes 0.9 10^3/uL (1.0-4.8); ABS Monocytes 0.4 10^3/uL (0.0-0.9); ABS Neutrophils 5.7 10^3/uL (1.5-7.6); Eosinophil % 8.3 %; Hematocrit 29.6 % (35-45); Lymphocyte % 12.2 %; Mean Corpuscular Hemoglobin 28.9 pg (27-33); Mean Corpuscular Hgb Conc 33.9 g/dL (31-36); Mean Corpuscular Volume 85.4 fL (80-97); Mean Platelet Volume 7.6 fL (7.5-11.2); Platelet Count 224 10^3/uL (150-450); Red Blood Count 3.46 10^6/uL (3.63-4.92); Red Cell Distribution Width 15.3 % (12-17); White Blood Count 7.7 10^3/uL (3.8-11.8)
[2023-02-08 04:35] LABS: Calcium 7.7 mg/dL (8.6-10.3); Creatinine, Serum 0.87 mg/dL (0.51-0.95); Magnesium 1.9 mg/dL (1.9-2.7); Potassium 3.8 mmol/L (3.5-5.0); eGFR CKD-EPI 66.5 (>60)
[2023-02-08] MEDS: Aspirin EC 81 mg TAB.EC (enteric coated) PO SCH (10:11)
[2023-02-08] MEDS: Dexmedetomidine 1,000 MCG in NS 0.9% 250 ml 240 ML IV SCH (12:40)
[2023-02-08] MEDS ORDERED: cefTRIAXone 1 gm/50 mL D5W 1 GM/50 ML BAG IV SCH (16:00)
[2023-02-08] MEDS: Dextran 70/Hypromellose Tears Eye Drops 15 ml BTL (for Artificials Tears) BOTH EYES PRN (18:20)
[2023-02-08] MEDS: CMCS: Ipratropium HFA INHALER(NF) INH SCH ×2 (20:01→20:02)
[2023-02-08] MEDS: Mometasone/Formoter 200/5 MDI INH SCH (20:02)
[2023-02-08] MEDS: Enoxaparin 30 MG/0.3 ML SYR SUBCUT SCH (23:12)
[2023-02-08] MEDS: Acetaminophen IV 1 GM/100ML 1,000 MG/100 ML BAG IV PRN (23:13)
[2023-02-09] MEDS: Morphine 2 MG/ML SYRINGE IV PRN ×7 (00:47→21:12)
[2023-02-09] MEDS: Dexmedetomidine 1,000 MCG in NS 0.9% 250 ml 240 ML IV SCH ×2 (02:39→15:36)
[2023-02-09 04:25] LABS: ABS Eosinophils 0.8 10^3/uL (0.0-0.5); ABS Lymphocytes 0.9 10^3/uL (1.0-4.8); ABS Monocytes 0.6 10^3/uL (0.0-0.9); ABS Neutrophils 5.1 10^3/uL (1.5-7.6); Eosinophil % 10.9 %; Hematocrit 28.6 % (35-45); Hemoglobin 9.5 g/dL (11.5-14.3); Lymphocyte % 12.2 %; Mean Corpuscular Hemoglobin 28.8 pg (27-33); Mean Corpuscular Hgb Conc 33.4 g/dL (31-36); Mean Corpuscular Volume 86.2 fL (80-97); Mean Platelet Volume 7.5 fL (7.5-11.2); Nucleated Red Blood Cells % 0.1 /100 WBC (0.0-0.4); Platelet Count 230 10^3/uL (150-450); Red Blood Count 3.32 10^6/uL (3.63-4.92); Red Cell Distribution Width 15.4 % (12-17); White Blood Count 7.4 10^3/uL (3.8-11.8)
[2023-02-09] MEDS: Chlorhexidine MOUTHWASH 0.12% 15 ML UDC TOPICAL SCH ×5 (04:28→19:59)
[2023-02-09 04:41] LABS: Calcium 7.6 mg/dL (8.6-10.3); Creatinine, Serum 0.84 mg/dL (0.51-0.95); Magnesium 1.7 mg/dL (1.9-2.7); Potassium 4.3 mmol/L (3.5-5.0); eGFR CKD-EPI 69.3 (>60)
[2023-02-09] MEDS: Mometasone/Formoter 200/5 MDI INH SCH (07:31)
[2023-02-09] MEDS: CMCS: Ipratropium HFA INHALER(NF) INH SCH ×2 (07:31→11:19)
[2023-02-09] MEDS ORDERED: Furosemide 40 mg/4 ml IV VIAL IV ONE (08:17)
[2023-02-09] MEDS ORDERED: Magnesium Sulfate 2 gm BAG 2 GM/50 ML BAG IVPB ONE (09:58)
[2023-02-09] MEDS ORDERED: Albumin Human 5% 0 GM/0 ML BTL IV ONE (10:06)
[2023-02-09] MEDS: ceFAZolin 1 GM in Dextrose 1 GM/50 ML BAG IVPB SCH ×2 (12:37→18:27)
[2023-02-09] MEDS: Haloperidol 5 mg/ml SDV IV/IM 5 MG/ML AMP IV SLOW PU PRN (13:30)
[2023-02-09 16:24] LABS: Calcium 7.7 mg/dL (8.6-10.3); Creatinine, Serum 0.91 mg/dL (0.51-0.95); Potassium 4.5 mmol/L (3.5-5.0)
[2023-02-09] MEDS: Acetaminophen IV 1 GM/100ML 1,000 MG/100 ML BAG IV PRN (19:55)
[2023-02-09] MEDS: fentaNYL 100 mcg/2 ml 50 MCG/ML VIAL IV SLOW PU PRN (19:58)
[2023-02-09] MEDS: Enoxaparin 30 MG/0.3 ML SYR SUBCUT SCH (21:05)
[2023-02-09] MEDS: Dextran 70/Hypromellose Tears Eye Drops 15 ml BTL (for Artificials Tears) BOTH EYES PRN (21:06)
[2023-02-10] MEDS: fentaNYL 100 mcg/2 ml 50 MCG/ML VIAL IV SLOW PU PRN ×3 (00:06→07:40)
[2023-02-10] MEDS: Haloperidol 5 mg/ml SDV IV/IM 5 MG/ML AMP IV SLOW PU PRN ×2 (00:49→07:01)
[2023-02-10] MEDS: Chlorhexidine MOUTHWASH 0.12% 15 ML UDC TOPICAL SCH ×6 (00:51→19:53)
[2023-02-10] MEDS: Morphine 2 MG/ML SYRINGE IV PRN ×3 (01:16→08:33)
[2023-02-10] MEDS: ceFAZolin 1 GM in Dextrose 1 GM/50 ML BAG IVPB SCH (03:12)
[2023-02-10 04:20] LABS: ABS Eosinophils 0.8 10^3/uL (0.0-0.5); ABS Lymphocytes 0.8 10^3/uL (1.0-4.8); ABS Monocytes 0.8 10^3/uL (0.0-0.9); ABS Neutrophils 5.8 10^3/uL (1.5-7.6); ABS Nucleated RBC 0.01 10^3/ul; Hematocrit 26.7 % (35-45); Hemoglobin 9.1 g/dL (11.5-14.3); Lymphocyte % 10.1 %; Mean Corpuscular Hemoglobin 28.7 pg (27-33); Mean Corpuscular Hgb Conc 34.1 g/dL (31-36); Mean Corpuscular Volume 84.1 fL (80-97); Mean Platelet Volume 7.8 fL (7.5-11.2); Nucleated Red Blood Cells % 0.1 /100 WBC (0.0-0.4); Platelet Count 246 10^3/uL (150-450); Red Blood Count 3.18 10^6/uL (3.63-4.92); Red Cell Distribution Width 15.4 % (12-17); White Blood Count 8.4 10^3/uL (3.8-11.8)
[2023-02-10 04:35] LABS: Calcium 7.8 mg/dL (8.6-10.3); Creatinine, Serum 0.97 mg/dL (0.51-0.95); Potassium 4.5 mmol/L (3.5-5.0); eGFR CKD-EPI 58.3 (>60)
[2023-02-10] MEDS: Dexmedetomidine 1,000 MCG in NS 0.9% 250 ml 240 ML IV SCH ×2 (04:46→17:24)
[2023-02-10] MEDS ORDERED: Morphine 4 MG/ML VIAL (1 ml) ONE (11:06)
[2023-02-10] MEDS: Dextran 70/Hypromellose Tears Eye Drops 15 ml BTL (for Artificials Tears) BOTH EYES PRN (17:11)
[2023-02-10] MEDS: Enoxaparin 30 MG/0.3 ML SYR SUBCUT SCH (22:21)
[2023-02-11] MEDS: Dextran 70/Hypromellose Tears Eye Drops 15 ml BTL (for Artificials Tears) BOTH EYES PRN (00:13)
[2023-02-11] MEDS: Chlorhexidine MOUTHWASH 0.12% 15 ML UDC TOPICAL SCH ×4 (00:23→13:27)
[2023-02-11] MEDS: Albuterol/Ipratropium NEB.SOL (2.5/0.5 MG) 3 ML NEB.SOLN INH PRN ×2 (03:54→10:54)
[2023-02-11] MEDS ORDERED: Furosemide 40 mg/4 ml IV VIAL IV ONE (04:12)
[2023-02-11 06:06] LABS: ABS Eosinophils 0.9 10^3/uL (0.0-0.5); ABS Lymphocytes 0.8 10^3/uL (1.0-4.8); ABS Monocytes 0.8 10^3/uL (0.0-0.9); ABS Neutrophils 6.2 10^3/uL (1.5-7.6); ABS Nucleated RBC 0.01 10^3/ul; Hematocrit 25.6 % (35-45); Hemoglobin 8.8 g/dL (11.5-14.3); Lymphocyte % 8.9 %; Mean Corpuscular Hgb Conc 34.5 g/dL (31-36); Mean Platelet Volume 8.1 fL (7.5-11.2); Nucleated Red Blood Cells % 0.1 /100 WBC (0.0-0.4); Platelet Count 272 10^3/uL (150-450); Red Blood Count 3.05 10^6/uL (3.63-4.92); Red Cell Distribution Width 15.2 % (12-17); White Blood Count 8.7 10^3/uL (3.8-11.8)
[2023-02-11] MEDS: Dexmedetomidine 1,000 MCG in NS 0.9% 250 ml 240 ML IV SCH (06:14)
[2023-02-11 06:29] LABS: Blood Urea Nitrogen 25 mg/dL (6-24); CO2 Carbon Dioxide 30 mmol/L (22-32); Calcium 7.9 mg/dL (8.6-10.3); Chloride 101 mmol/L (101-111); Creatinine, Serum 0.94 mg/dL (0.51-0.95); Glucose 150 mg/dL (70-100); Sodium 136 mmol/L (135-145); eGFR CKD-EPI 60.6 (>60)
[2023-02-11 06:36] LABS: Anion Gap 5 mmol/L (2-16)
[2023-02-11] MEDS ORDERED: LORazepam 2 mg VIAL 1 ml ONE (09:30)
[2023-02-11] MEDS ORDERED: Acetylcysteine INHALATION SOL 200 MG/ML NEB.SOLN 10 ML INH ONE (09:34)
[2023-02-11] MEDS ORDERED: Lorazepam PYXIS KEY PRN (10:05)
[2023-02-11] MEDS ORDERED: LORazepam 2 mg VIAL 1 ml IV PUSH ONE (10:05)
[2023-02-11] MEDS ORDERED: LORazepam 2 mg VIAL 1 ml IV PUSH PRN (12:45)
[2023-02-11] MEDS ORDERED: Morphine PCA 5 MG/ML Titrate per Protocol PCA SCH (13:00)
[2023-02-11] MEDS ORDERED: Morphine 10 MG/ML VIAL (1 ml) IV ONE ×2 (13:00→14:28)
[2023-02-11 13:31] VITALS: BP 108/42
[2023-02-11] MEDS ORDERED: Morphine 10 MG/ML VIAL (1 ml) ONE (14:24)
== END 2023-02-11 16:25 | disposition expired | DRG 871 ==
LOC: ED 16:08 → SUATTDRO 19:09 → EDHOLD 21:14 → SUATTDRO 21:14 → MEDTELE 02-04 08:26 → ICU 02-04 13:22
PROVIDERS: ADMIT Hospitalist; ATTEND Internal Medicine Critical Care Medicine